=== PATIENT | male | born 1930 | race Caucasian/White ===

== ENCOUNTER 2017-05-03 08:29 | Inpatient (IN) | payer OTHER ==
[~2017-05-03] VITALS: Ht 175.3 cm; Wt 78.1 kg
[2017-05-03 09:48] LABS: EOSINOPHIL (%) 0 % (0-5); HEMATOCRIT 45.2 % (38.0-50.0); IMMATURE GRANULOCYTE (%) 0.3 % (0.0-0.7); INSTRUMENT ABS NEUTROPHIL CT 12.3 K/uL; LYMPHOCYTE COUNT 0.7 K/uL (1.0-2.8); MCH 28.8 PG (29.0-34.0); MCV 87.3 FL (86-99); MEAN PLAT.VOLUME 9.4 uM^3 (9.0-12.4); MONOCYTE (%) 6.9 % (3-12); NEUTROPHIL (%) 87.8 % (45-76); NEUTROPHIL COUNT 12.3 K/uL (1.8-6.4); PLATELET COUNT 158 K/uL (156-360); RBC DIS.WIDTH-CV 13.8 % (11.8-14.6); RBC DIS.WIDTH-SD 44.1 % (39-53); RED BLOOD COUNT 5.18 M/uL (4.00-5.50)
[2017-05-03 09:56] LABS: INTER. NORMALIZED RATIO 1.1; PROTHROMBIN TIME 11.4 (9.2-11.2)
[2017-05-03 10:01] LABS: CHLORIDE 102 mEq/L (99-109); POTASSIUM 4.2 mEq/L (3.7-5.4); SODIUM 138 mEq/L (136-147)
[2017-05-03 10:03] LABS: GLUCOSE 118 mg/dL (70-99)
[2017-05-03 10:04] LABS: ANION GAP 12 MEQ/L (2-14)
[2017-05-03 10:05] LABS: TOTAL BILIRUBIN 2.1 mg/dL (0.0-1.0)
[2017-05-03 10:07] LABS: ALKALINE PHOSPHATASE 82 IU/L (3-129); GFR ESTIMATE (CALCULATED) > 59 mL/min/
[2017-05-03 10:08] LABS: UREA NITROGEN (BUN) 32 mg/dL (9-23)
[2017-05-03 10:10] LABS: CREATINE KINASE 532 IU/L (1-294)
[2017-05-03 10:11] LABS: TROP-I INTERPRETATION NEGATIVE; TROPONIN-I 0.03 ng/mL (0.0-0.30)
[2017-05-03 10:59] LABS: ADD MIUA? YES; BILIRUBIN NEGATIVE; BLOOD SMALL; COLOR YELLOW ((YELLOW)); GLUCOSE (STRIP) NEGATIVE; KETONES 5; LEUKOCYTES NEGATIVE; NITRITE NEGATIVE; PROTEIN (STRIP) 100; SPECIFIC GRAVITY 1.013 (1.000-1.030); UROBILINOGEN 0.2 MG/DL (0.2-1.0)
[2017-05-03 11:10] LABS: BACTERIA NONE SEEN /HPF; EPITHELIAL CELLS RARE /HPF; HYALINE CASTS 0-5 /LPF; MUCUS TRACE /LPF; UCUL ADDED? NO; WHITE BLOOD CELLS 0-5 /HPF (0-5)
[2017-05-03] MEDS ORDERED: LOW DOSE ASPIRI81 M1 PO (13:25)
[2017-05-03] MEDS ORDERED: ACCUPRIL40 MG PO (13:25)
[2017-05-03] MEDS ORDERED: NORVASC5 MG PO (13:25)
[2017-05-03] MEDS ORDERED: OMEGA 3-6-9 11200 MG PO (13:26)
[2017-05-03] MEDS ORDERED: VITAMIN B12 100MCG PO (13:26)
[2017-05-03 15:25] LABS: HDL CHOLESTEROL 52 MG/DL (Desirable>=40); LDL CHOLESTEROL 72 mg/dL (Desirable<100); NON-HDL CHOLESTEROL 80 mg/dL (Desirable<160); TOTAL CHOLESTEROL 132 mg/dL (Desirable<200); TRIGLYCERIDES 38 MG/DL (Normal: <150)
[2017-05-03 15:33] VITALS: BP 165/100
[2017-05-03 16:35] LABS: TROP-I INTERPRETATION NEGATIVE; TROPONIN-I 0.04 ng/mL (0.0-0.30)
[2017-05-03 17:26] LABS: Estimated Average Glucose 94 mg/dL (70-123); HEMOGLOBIN A1c (GLYCOHEMOGLOB) 4.9 % HGB (Below 5.7)
[2017-05-03 20:04] VITALS: BP 143/92
[2017-05-03 22:02] LABS: TROP-I INTERPRETATION NEGATIVE; TROPONIN-I 0.04 ng/mL (0.0-0.30)
[2017-05-03 23:41] VITALS: BP 152/87
[2017-05-04] VITALS (7 sets, daily range): BP systolic 139–172; BP diastolic 81–95
[2017-05-04 09:06] LABS: ALKALINE PHOSPHATASE 61 IU/L (3-129); ANION GAP 9 MEQ/L (2-14); CHLORIDE 106 MEQ/L (99-109); CREATINE KINASE 459 IU/L (1-294); GFR ESTIMATE (CALCULATED) > 59 mL/min/; GLUCOSE 94 mg/dL (70-99); POTASSIUM 4.1 MEQ/L (3.7-5.4); SAMPLE HEMOLYSIS CHECK 1; SAMPLE ICTERIC CHECK 0; SAMPLE LIPEMIA CHECK 0; SODIUM 139 MEQ/L (136-147); TOTAL BILIRUBIN 1.6 MG/DL (0.0-1.0); TOTAL CK 459 IU/L (1-294); UREA NITROGEN (BUN) 25 mg/dL (9-23)
[2017-05-04 09:10] LABS: CK-MB 3.8 ng/mL (0.0-4.9)
[2017-05-05 03:53] VITALS: BP 166/94
[2017-05-05 06:16] LABS: EOSINOPHIL (%) 0.3 % (0-5); IMMATURE GRANULOCYTE (%) 0.5 % (0.0-0.7); IMMATURE GRANULOCYTE COUNT 0.1 K/uL; INSTRUMENT ABS NEUTROPHIL CT 7.3 K/uL; LYMPHOCYTE COUNT 1.2 K/uL (1.0-2.8); MCH 28.8 PG (29.0-34.0); MCV 87.2 FL (86-99); MEAN PLAT.VOLUME 9.2 uM^3 (9.0-12.4); MONOCYTE (%) 12.8 % (3-12); MONOCYTE COUNT 1.3 K/uL (0-0.8); NEUTROPHIL (%) 73.7 % (45-76); NEUTROPHIL COUNT 7.3 K/uL (1.8-6.4); PLATELET COUNT 151 K/uL (156-360); RBC DIS.WIDTH-SD 44.9 % (39-53); RED BLOOD COUNT 4.93 M/uL (4.00-5.50); WHITE BLOOD COUNT 9.9 K/uL (4.1-10.2)
[2017-05-05 06:41] LABS: ALKALINE PHOSPHATASE 61 IU/L (3-129); ANION GAP 10 MEQ/L (2-14); CHLORIDE 105 MEQ/L (99-109); GFR ESTIMATE (CALCULATED) > 59 mL/min/; GLUCOSE 78 mg/dL (70-99); POTASSIUM 3.7 MEQ/L (3.7-5.4); SAMPLE HEMOLYSIS CHECK 0; SAMPLE ICTERIC CHECK 0; SAMPLE LIPEMIA CHECK 0; SODIUM 138 MEQ/L (136-147); TOTAL BILIRUBIN 1.7 MG/DL (0.0-1.0); UREA NITROGEN (BUN) 24 mg/dL (9-23)
[2017-05-05 07:49] VITALS: BP 175/88
[2017-05-05 15:35] VITALS: BP 180/88
[2017-05-05 19:42] VITALS: BP 181/112
[2017-05-05 23:42] VITALS: BP 151/97
[2017-05-06 04:23] VITALS: BP 175/99
[2017-05-06 12:10] VITALS: BP 164/94
[2017-05-06 23:47] VITALS: BP 192/107
[2017-05-07 07:11] LABS: GFR ESTIMATE (CALCULATED) > 59 mL/min/
[2017-05-07 08:08] VITALS: BP 189/90
[2017-05-07 08:18] VITALS: BP 148/80
[2017-05-07 16:15] VITALS: BP 150/74
[2017-05-08] VITALS: BP 188/88
[2017-05-08 04:40] VITALS: BP 183/99
[2017-05-08 07:34] VITALS: BP 159/77
[2017-05-08] MEDS ORDERED: ANASPAZ0.125 MG PO (13:42)
[2017-05-08] MEDS ORDERED: ATIVAN INTE2 MG/1 ML PO (13:42)
[2017-05-08] MEDS ORDERED: MORPHINE CON20 MG/M1 PO (13:42)
== END 2017-05-08 15:53 | disposition hospice, home (50) | DRG 64 ==
LOC: EME → EDBD 08:29 → EME 08:29 → EDOF 12:34 → 5SOUTH 12:34
PROVIDERS: Emergency Medicine; Hospitalist; Internal Medicine
DX: I63.512 Cerebral infarction due to unspecified occlusion or stenosis of left middle cerebral artery (principal); G93.40 Encephalopathy, unspecified; R13.10 Dysphagia, unspecified; I48.2 Chronic atrial fibrillation; M62.82 Rhabdomyolysis; E86.0 Dehydration; R47.01 Aphasia; R29.810 Facial weakness; G81.91 Hemiplegia, unspecified affecting right dominant side; J32.4 Chronic pansinusitis; J45.909 Unspecified asthma, uncomplicated; I10 Essential (primary) hypertension; Z51.5 Encounter for palliative care; I63.9 Cerebral infarction, unspecified; I51.7 Cardiomegaly; M47.812 Spondylosis without myelopathy or radiculopathy, cervical region; Z79.899 Other long term (current) drug therapy; Z79.82 Long term (current) use of aspirin; Z91.14 Patient's other noncompliance with medication regimen; E80.6 Other disorders of bilirubin metabolism
CPT/HCPCS: 70450; 71010; 72125; 80053; 80061; 80202; 81003; 82550; 82553; 82565; 83036; 83605; 84484; 85025; 85610; 87040; 87076; 87077; 87801; 92523 GN; 92526 GN; 92610 GN; 93005; 93306; 93880; 97530 GP; 99202; 99281; 99285; J2060; J3370; J7030; J7042; S0028